=== PATIENT | female | born 1985 | race African-American/Black ===

== ENCOUNTER 2022-08-18 14:25 | Inpatient (IN) | payer BC ==
[2022-08-18 14:59] VITALS: BMI 26.3
[2022-08-18] MEDS ORDERED: hydrALAZINE 20 MG/ML VIAL SLOW IVP PRN ×3 (15:41→16:58)
[2022-08-18] MEDS ORDERED: CEFAZOLIN 2 GM VIAL ONE (16:15)
[2022-08-18] MEDS ORDERED: Sodium Chloride 0.9% 100 ML ONE (16:15)
[2022-08-18] MEDS ORDERED: Promethazine HCl 25 MG/ML VIAL IM PRN ×2 (16:16→17:48)
[2022-08-18] MEDS ORDERED: Famotidine/PF 20 mg/2ml Vial SLOW IVP PRN (16:16)
[2022-08-18] MEDS ORDERED: Bicitra 30 ML UDCUP PO PRN (16:16)
[2022-08-18] MEDS ORDERED: Ondansetron PF 4 MG/2 ML Vial IVP PRN ×2 (16:16→17:48)
[2022-08-18] MEDS ORDERED: Famotidine/PF 20 mg/2ml Vial ONE (16:16)
[2022-08-18] MEDS ORDERED: CEFAZOLIN 2 GM in Sodium Chloride 0.9% 100 ML IVPB SCH (16:30)
[2022-08-18] MEDS ORDERED: NS w/ Oxytocin 30 units 500 ML IV SCH (16:30)
[2022-08-18] MEDS ORDERED: Lactated Ringer's 1,000 ML IV SCH (16:30)
[2022-08-18 16:50] LABS: Hemoglobin 11.6 g/dL (12.0-15.5); Mean Corpuscular HGB CONC 34.2 g/dL (32.0-36.0); Mean Corpuscular Hemoglobin 30.3 pg (27.0-33.0); Mean Corpuscular Volume 88.5 fl (81.6-98.3); Mean Platelet Volume 11.5 fl (7.4-10.4); Platelet Count 192 10x3/uL (150-450); RBC Distribution Width 12.8 % (11.5-14.5); Red Blood Cell (RBC) Count 3.83 10x6/uL (3.90-5.03); White Blood Cell (WBC) Count 9.8 10x3/uL (3.5-10.5)
[2022-08-18] MEDS ORDERED: Morphine PF 10 MG/10 ML VIAL ONE (16:53)
[2022-08-18] MEDS ORDERED: Fentanyl 100 MCG/2 ML VIAL ONE (16:53)
[2022-08-18] MEDS ORDERED: Phenylephrine 10 MG/ML VIAL ONE (16:55)
[2022-08-18] MEDS ORDERED: Boostrix 0.5 ML (Tdap) VIAL (>/=7 yrs of age) IM ONE (16:58)
[2022-08-18] MEDS ORDERED: Zolpidem Tartrate 5 MG TAB PO PRN (16:58)
[2022-08-18] MEDS ORDERED: Lanolin Ointment 7 GM TUBE TOP PRN (16:58)
[2022-08-18] MEDS ORDERED: HYDROcodone/Acetaminophen 5/325 mg Tablet PO PRN ×3 (16:58→21:14)
[2022-08-18] MEDS ORDERED: Bisacodyl 10 MG SUPP PR PRN (16:58)
[2022-08-18] MEDS ORDERED: Dexamethasone 4 mg/ml Vial ONE (17:14)
[2022-08-18] MEDS ORDERED: Ondansetron PF 4 MG/2 ML Vial ONE (17:14)
[2022-08-18 17:15] LABS: SARS-CoV-2 NAA Rapid Test Not Detected (NotDetected)
[2022-08-18] MEDS ORDERED: Oxytocin 10 UNITS/ML VIAL ONE ×2 (17:18→17:40)
[2022-08-18 17:28] LABS: Syphilis Antibody Nonreactive (Nonreactive); Syphilis Antibody Index 0.05 S/CO (<1.00 Non-Reactive)
[2022-08-18 17:30] LABS: HBSAg Index 0.16 S/CO (0-0.99); Hep B Surf Ag Non-Reactive S/CO (NonReactive)
[2022-08-18] MEDS ORDERED: Naloxone HCl 0.4 mg/ml Vial IV PRN (17:48)
[2022-08-18] MEDS ORDERED: Promethazine HCl 25 MG SUPP PR PRN (17:48)
[2022-08-18] MEDS ORDERED: Moisturizing Cream (Eucerin) 113 GM JAR TOP PRN (17:48)
[2022-08-18] MEDS ORDERED: Naloxone HCl 0.4 mg/ml Vial IVP PRN ×2 (17:48)
[2022-08-18] MEDS ORDERED: Ondansetron HCl/PF 4 MG/2 ML Vial IVP PRN (17:48)
[2022-08-18] MEDS ORDERED: Meperidine HCl/PF 25 MG/ML VIAL SLOW IVP PRN (17:48)
[2022-08-18] MEDS ORDERED: Fentanyl 100 MCG/2 ML VIAL SLOW IVP PRN (17:48)
[2022-08-18] MEDS ORDERED: diphenhydrAMINE 50 MG/ML VIAL IVP PRN (17:48)
[2022-08-18] MEDS ORDERED: Communication Order-Pharmacy FS SCH (18:00)
[2022-08-18] MEDS: diphenhydrAMINE 25 MG CAP PO PRN (20:43)
[2022-08-18] MEDS: Acetaminophen 325 MG TAB PO PRN (20:43)
[2022-08-18] MEDS: traMADol HCl 50 MG TAB PO PRN (21:41)
[2022-08-19] MEDS: traMADol HCl 50 MG TAB PO PRN ×5 (00:44→18:29)
[2022-08-19] MEDS: Acetaminophen 325 MG TAB PO PRN (00:45)
[2022-08-19] MEDS: diphenhydrAMINE 25 MG CAP PO PRN ×2 (00:45→08:28)
[2022-08-19 03:57] LABS: Hemoglobin 10.7 g/dL (12.0-15.5); Mean Corpuscular HGB CONC 33.9 g/dL (32.0-36.0); Mean Corpuscular Hemoglobin 29.9 pg (27.0-33.0); Mean Corpuscular Volume 88.3 fl (81.6-98.3); Mean Platelet Volume 10.6 fl (7.4-10.4); Platelet Count 170 10x3/uL (150-450); RBC Distribution Width 12.5 % (11.5-14.5); Red Blood Cell (RBC) Count 3.58 10x6/uL (3.90-5.03); White Blood Cell (WBC) Count 14.2 10x3/uL (3.5-10.5)
[2022-08-19] MEDS: Docusate 100 MG CAP PO SCH ×2 (07:31→08:11)
[2022-08-19] MEDS: Prenatal Vitamin 1 TAB PO SCH (08:11)
[2022-08-19] MEDS: HYDROcodone/Acetaminophen 5/325 mg Tablet PO PRN ×3 (11:49→20:11)
[2022-08-19] MEDS: Simethicone Chewable 80 MG TAB PO PRN (18:27)
[2022-08-20] MEDS: Docusate 100 MG CAP PO SCH ×3 (00:38→19:56)
[2022-08-20] MEDS: Simethicone Chewable 80 MG TAB PO PRN ×4 (00:39→18:28)
[2022-08-20] MEDS: HYDROcodone/Acetaminophen 5/325 mg Tablet PO PRN ×4 (00:39→19:58)
[2022-08-20] MEDS: traMADol HCl 50 MG TAB PO PRN ×4 (02:13→18:24)
[2022-08-20] MEDS ORDERED: traMADol HCl 50 MG TAB PO PRN (08:23)
[2022-08-20] MEDS: Prenatal Vitamin 1 TAB PO SCH (11:40)
[2022-08-21] MEDS: HYDROcodone/Acetaminophen 5/325 mg Tablet PO PRN ×4 (01:08→21:34)
[2022-08-21] MEDS: traMADol HCl 50 MG TAB PO PRN (04:52)
[2022-08-21] MEDS: Simethicone Chewable 80 MG TAB PO PRN (04:52)
[2022-08-21] MEDS: Docusate 100 MG CAP PO SCH ×2 (08:51→21:29)
[2022-08-21] MEDS: Prenatal Vitamin 1 TAB PO SCH (08:51)
[2022-08-21] MEDS: Naproxen 500 MG TAB PO SCH ×2 (12:53→23:12)
[2022-08-22] MEDS: Naproxen 500 MG TAB PO SCH ×2 (00:01→13:37)
[2022-08-22] MEDS: HYDROcodone/Acetaminophen 5/325 mg Tablet PO PRN ×2 (06:08→13:36)
[2022-08-22 08:15] VITALS: BP 112/67; TEMP 98.5
[2022-08-22] MEDS: Prenatal Vitamin 1 TAB PO SCH (13:36)
[2022-08-22] MEDS: Docusate 100 MG CAP PO SCH (13:36)
== END 2022-08-22 14:15 | disposition home or self-care (01) | DRG 788 ==
LOC: CSHLD/OP 14:25 → CSHLD 16:16 → CSHPP 20:13
PROVIDERS: ADMIT Obstetrics & Gynecology; ATTEND Obstetrics & Gynecology
PROC: 10D00Z1 Extraction of Products of Conception, Low, Open Approach (ICD-10-PCS; principal; 2022-08-18)
DX: O60.14X0 Preterm labor third trimester with preterm delivery third trimester, not applicable or unspecified (principal); Z3A.32 32 weeks gestation of pregnancy; Z37.0 Single live birth; Z20.822 Contact with and (suspected) exposure to COVID-19; O34.29 Maternal care due to uterine scar from other previous surgery; O99.892 Other specified diseases and conditions complicating childbirth; N73.6 Female pelvic peritoneal adhesions (postinfective); Z79.899 Other long term (current) drug therapy; Z88.6 Allergy status to analgesic agent; Z14.8 Genetic carrier of other disease; Z98.890 Other specified postprocedural states
CPT/HCPCS: 36415; 51702; 76817; 85027; 86780; 86850; 86900; 86901; 87340; 99285; J1100; J2274; J2370; J2405; J2590; J3010; J3490; S0028; U0002